=== PATIENT | female | born 1965 | race Caucasian/White ===

== ENCOUNTER → 2020-02-27 | Outpatient (CLI) | payer OTHER ==
[~2020-02-27] MED LIST: ALBU4 PO; ALBU90OI INH; ALBU90OI6 INH; ASPI325 PO; ATOR40TA PO; Amlodipine Besy10 MG PO; CITA20 PO; CLON.1 PO; CLON.2 PO; CLON.5 PO; CLOP75 PO; FLUSAL2505 INH; GABA300 PO; LABE100 PO; Lisinopril2.5 MG; METF500 PO; MONT10T PO; NAC600 MG PO; TRAZ50 PO; Tessalon200 MG; VITAMIN D33000 UNIT PO; ZESTORETIC 20-251 EA PO
[2020-02-27 17:13] LABS: Creatinine Urine 55.5 mg/dL (27.00-270.00); Protein, Urine Quantitative 224.8 mg/dL (0.0-11.9)
== END | disposition home or self-care (01) ==
LOC: LAB SHORT 09:43 → LAB 09:43
PROVIDERS: Internal Medicine Nephrology
DX: N18.3 Chronic kidney disease, stage 3 (moderate) (principal); D63.1 Anemia in chronic kidney disease
CPT/HCPCS: 81050; 82043; 82530; 82570; 84156

== ENCOUNTER → 2021-01-06 | Outpatient (CLI) | payer OTHER ==
[2021-01-09 21:08] LABS: METANEPHRINE, UR 35 ug/L (Undefined)
== END | disposition home or self-care (01) ==
LOC: LAB SHORT 12:00
PROVIDERS: Internal Medicine Nephrology
DX: N18.30 Chronic kidney disease, stage 3 unspecified (principal); D63.1 Anemia in chronic kidney disease; E55.9 Vitamin D deficiency, unspecified; E78.00 Pure hypercholesterolemia, unspecified; E29.1 Testicular hypofunction; R76.9 Abnormal immunological finding in serum, unspecified; R94.5 Abnormal results of liver function studies; R94.6 Abnormal results of thyroid function studies
CPT/HCPCS: 81050; 83835

== ENCOUNTER → 2021-02-16 | Outpatient (CLI) | payer OTHER ==
[~2021-02-16] MED LIST changes: -ATOR40TA PO; +ATOR80 PO; +GLIP10ER PO
[2021-02-21 08:09] LABS: METANEPHRINE, UR 44 ug/L (Undefined)
== END | disposition home or self-care (01) ==
LOC: LAB 19:21 → LAB SHORT 19:21
PROVIDERS: Internal Medicine Nephrology
DX: N18.30 Chronic kidney disease, stage 3 unspecified (principal); D63.1 Anemia in chronic kidney disease; N25.81 Secondary hyperparathyroidism of renal origin; E78.00 Pure hypercholesterolemia, unspecified; R76.9 Abnormal immunological finding in serum, unspecified; R94.5 Abnormal results of liver function studies; R94.6 Abnormal results of thyroid function studies; E55.9 Vitamin D deficiency, unspecified
CPT/HCPCS: 81050; 82088; 83835

== ENCOUNTER 2021-04-13 09:19 | Emergency (ER) | payer OTHER ==
[~2021-04-13] VITALS: Ht 167.6 cm; Wt 90.7 kg
[~2021-04-13 09:19] MED LIST changes: -ALBU90OI INH; -ATOR80 PO; -Amlodipine Besy10 MG PO; -CITA20 PO; -CLOP75 PO; -GABA300 PO; -GLIP10ER PO; -LABE100 PO; -MONT10T PO; -TRAZ50 PO; -ZESTORETIC 20-251 EA PO
[2021-04-13 10:07] LABS: BASOPHILS ABSOLUTE AUTO 0.04 K/mm3 (0.00-0.23); BASOPHILS PERCENT AUTO 1 % (0-2); EOSINOPHILS ABSOLUTE AUTO 0.34 K/mm3 (0.00-0.68); EOSINOPHILS PERCENT AUTO 5 % (0-6); Hematocrit 26.7 % (33.0-51.0); Hemoglobin 8.6 g/dL (11.5-16.0); IMMATURE GRAN ABSOLUTE AUTO 0.02 K/mm3 (0.00-0.10); IMMATURE GRAN PERCENT AUTO 0 % (0-1); LYMPHOCYTES PERCENT AUTO 12 % (21-46); MONOCYTES ABSOLUTE AUTO 0.64 K/mm3 (0.16-1.47); MONOCYTES PERCENT AUTO 9 % (4-13); Mean Corpuscular HGB 29.3 pg (26.0-34.0); Mean Corpuscular HGB Conc 32.2 g/dL (31.5-36.5); Mean Corpuscular Volume 91 fL (80-100); Mean Platelet Volume 10.3 fL (9.1-12.4); NEUTROPHILS ABSOLUTE AUTO 5.52 K/mm3 (1.96-9.15); NEUTROPHILS PERCENT AUTO 74 % (41-73); Platelet Count 273 K/mm3 (150-400); RDW Coefficient Variation 15.6 % (11.7-14.2); RDW Standard Deviation 52.4 fL (35.1-46.3); Red Blood Cell Count 2.94 M/mm3 (3.80-5.20); White Blood Cell Count 7.46 K/mm3 (4.00-11.30)
[2021-04-13 10:44] LABS: Alanine Aminotransfer (ALT/SGP 22 U/L (12-78); Albumin, Blood 3.2 g/dL (3.4-5.0); Albumin/Globulin Ratio 0.8 (0.8-1.8); Alk Phos 114 U/L (50-136); Anion Gap 9 mmol/L (6-16); Aspartate Aminotrans (AST/SGOT 14 U/L (12-37); Bilirubin, Total 0.2 mg/dL (0.1-1.0); Blood Urea Nitrogen 64 mg/dL (8-24); Bun/Creatinine Ratio 20.6 (12.0-20.0); CO2, Blood 19 mmol/L (21-32); Calcium, Blood 8.8 mg/dL (8.5-10.1); Chloride, Blood 110 mmol/L (98-108); Glomerular Filtration Rate 15 (60-); Glucose, Blood 161 mg/dL (70-99); Potassium, Blood 4.4 mmol/L (3.5-5.5); Sodium, Blood 138 mmol/L (136-145); Total Protein, Blood 7.2 g/dL (6.4-8.2); Troponin I <0.015 ng/mL (0.000-0.040)
[2021-04-13] MEDS ORDERED: ATOR80 PO (12:33)
[2021-04-13] MEDS ORDERED: Amlodipine Besy10 MG PO (12:34)
[2021-04-13] MEDS ORDERED: ZESTORETIC 20-251 EA PO (12:34)
[2021-04-13] MEDS ORDERED: CITA20 PO (12:34)
[2021-04-13] MEDS ORDERED: CLOP75 PO (12:34)
[2021-04-13] MEDS ORDERED: TRAZ50 PO (12:35)
[2021-04-13] MEDS ORDERED: LABE100 PO (12:35)
[2021-04-13] MEDS ORDERED: GABA300 PO (12:36)
[2021-04-13] MEDS ORDERED: GLIP10ER PO (12:36)
[2021-04-13] MEDS ORDERED: ALBU90OI INH (12:36)
[2021-04-13] MEDS ORDERED: MONT10T PO (12:37)
--- NOTE | 2021-04-13 15:21 | NUR ---
RECIEVED REPORT AND PATIENT VSS PATIENT GROGGY FALLS ASLEEP. DRESSING CDI ON RIGHT CHEST WALL
--- NOTE | 2021-04-13 16:20 | NUR ---
Discharge instructions reviewed with patient. Patient verbalizes understanding. Copy given to patient to take home. Patient States Post-Procedure ride home has been arranged. Discharged via wheelchair to private car for ride home.
--- NOTE | 2021-04-17 16:20 | NUR ---
04/17/21 1620 Lara Godwin VERIFICATIONS: EDIT CHART.
== END 2021-04-13 12:53 | disposition other institution (70) ==
LOC: ER 09:19
PROVIDERS: Emergency Medicine
DX: I12.9 Hypertensive chronic kidney disease with stage 1 through stage 4 chronic kidney disease, or unspecified chronic kidney disease (principal); N18.9 Chronic kidney disease, unspecified; D64.9 Anemia, unspecified; I25.10 Atherosclerotic heart disease of native coronary artery without angina pectoris; Z91.09 Other allergy status, other than to drugs and biological substances; Z79.82 Long term (current) use of aspirin; Z79.899 Other long term (current) drug therapy
CPT/HCPCS: 36415; 77001; 80053; 82947; 83880; 84484; 85025; 93005; 93010; 99285-25; C1750; J0690; J7030